=== PATIENT | female | born 1955 | race Caucasian/White ===

== ENCOUNTER 2023-09-11 09:01 | Outpatient (AMB) | payer MEDICARE, SELFPAY ==
--- NOTE | 2023-09-11 09:02 | A.OFFVIS_ITS ---
Intake Vital Signs 3 09/11/23 09:05 Height 5 ft 7 in Weight 214 lb BMI 33.5 BP 126/68 Blood Pressure Location Lt brachial Position Sitting Pulse 68 Pulse Source Pulse Oximeter Pulse Oximetry (%) 98 Oxygen Delivery Method Room Air Intake Visit Reasons: pulmonary nodules Rehab Technician Required: No Media Assistant: Media Assistant offered & declined Accompanied by: Self / Same As Patient Allergies bees Allergy (Severe, Uncoded 09/11/23 09:13) Anaphylaxis Medication List - Last Reconciled 09/11/23 by Renetta Navarro LPN apixaban 5 mg PO BID cholecalciferol (vitamin D3) 125 mcg PO DAILY diltiazem HCl 120 mg PO DAILY estradiol (Estrace) 1 mg PO DAILY progesterone micronized 200 mg PO BEDTIME HPI pulmonary nodules 2 HPI0 Details Earlene is a pleasant 67 year female, never smoker, with underlying atrial fibrillation recently on diltiazem and Eliquis, hemochromatosis, grave's disease and basal cell carcinoma. She was referred by PCP for pulmonary evaluation. She was seen at [facility] on 08/12 for sudden onset chest pain and shortness of breath found to be in rapid atrial fibrillation. Ddimer was positive and CTA performed which was negative for PE, however multiple nodules were incidentally found and well as nodular pleural thickening. Report below. Patient denies prior CT. She denies any respiratory symptoms at this time. She reports being quite active with minimal respiratory symptoms. She denies any prior history of asthma. She denies any pertinent family history. She reports multiple occupational exposures with silicone, dust and dirt. [facility] Social History (Updated 09/11/23 @ 09:14 by Renetta Navarro LPN) Patient Tobacco Use Status: Never used Tobacco Smoked in Last 30 Days: No Review of Systems Const Denies chills, Denies excessive sweating, Denies fever(s), Denies headache(s) and Denies night sweats Eyes Denies dry eyes, Denies irritation and Denies itchy eyes ENT Reports Normal hearing present, Denies headache(s), Denies nasal congestion, Denies nasal discharge, Denies post nasal drip and Denies sore throat Card Denies chest pain, Denies chest pain at rest, Denies chest pain with activity, Denies claudication, Denies leg edema, Denies dyspnea, Denies dyspnea on exertion, Denies orthopnea and Denies paroxysmal nocturnal dyspnea Resp Denies chest congestion, Denies cough, Denies excessive phlegm production, Denies pain on inspiration, Denies pain with cough, Denies dyspnea, Denies dyspnea on exertion, Denies stridor and Denies wheezing Musc Denies myalgias Neuro Reports Normal hearing present and Denies headache(s) Endo Denies excessive sweating Damion/Lymph Denies lymphadenopathy Aller/Immun Denies itchy eyes, Denies seasonal rhinorrhea and Denies wheezing Physical Exam Vital Signs: Last Vital Signs Pulse 68 09/11/23 09:05 BP 126/68 09/11/23 09:05 Pulse Ox 98 09/11/23 09:05 Oxygen Delivery Method Room Air 09/11/23 09:05 BMI result Body Mass Index 33.5 Const General: cooperative, healthy appearing, comfortable, no acute distress, well developed and alert Orientation/consciousness: patient oriented x3 Limitations: no limitations HEENT Head: Yes normal to inspection, Yes normocephalic and Yes atraumatic Ears: hearing grossly normal bilaterally and external ears normal Eyes General: appearance normal, both eyes and all related structures Eyelids: Yes eyelids normal Sclerae: sclerae normal EOM: EOMs intact bilaterally Neck Neck: Yes normal visual inspection and Yes no lymphadenopathy Lymphatic: no lymphadenopathy noted Chest Chest palpation & inspection: normal inspection of the chest Resp Effort & Inspection: normal respiratory effort, able to speak in complete sentences, no audible wheezes, no cough, no stridor, not tachypneic, no tripod positioning and no use of accessory muscles Auscultation: clear to auscultation bilaterally Cardio Jugular venous distension: no JVD Rate: regular rate Rhythm: regular rhythm Skin Other: warm, dry General skin exam: no rashes or lesions noted Neuro General: patient oriented x3 Cranial nerves: Yes Normal hearing present Cognition (Neuro): normal cognition Gait exam (Neuro): Normal gait present Extrem General: Yes normal to inspection, Yes capillary refill normal, Yes no clubbing, cyanosis or edema and Yes no pedal edema Psych Appearance: grossly normal and well kempt Speech and movement: Normal speech and movement present and Clear speech present Affect: normal affect Attitude: cooperative Thought process: Normal thought process present Thought content: Normal thought content present Insight: Good insight present (Psych) Judgement: Good judgement present (Psych) Results Reviewed Results Reviewed: Assessment & Plan Assessment & Plan (1) Multiple pulmonary nodules: Code(s): R91.8 - Other nonspecific abnormal finding of lung field (2) Pleural thickening: Code(s): J92.9 - Pleural plaque without asbestos Plan Earlene presents for evaluation of incidental pulmonary nodules and MALICK nodular thickening measuring up to 2.5 cm. Recommend patient were made for for recommendations were made for PET versus biopsy. Will obtain images, as only report is available today. Once reviewed, will discuss plan for further work up with patient. All questions were answered and patient is in agreement of plan. Will follow-up once imaging is reviewed. Coding Level of Care Code New Pt Level 3 (93372) Diagnoses Multiple pulmonary nodules R91.8 Pleural thickening J92.9
[2023-09-11 09:05] VITALS: BP 126/68; PULSE 68; O2SAT 98; BMI 33.5
== END 2023-09-11 09:52 | disposition home or self-care (01) ==
PROVIDERS: PCP Internal Medicine; Referring Provider Internal Medicine; Visit Provider Nurse Practitioner Family
DX: R91.8 Other nonspecific abnormal finding of lung field (principal); J92.9 Pleural plaque without asbestos
CPT/HCPCS: 99203

== ENCOUNTER → 2023-09-11 09:01 | Outpatient (BNVA) | payer MEDICARE, SELFPAY | PROVIDERS: PCP Internal Medicine; Referring Provider Internal Medicine; Visit Provider Nurse Practitioner Family | DX: R91.8 Other nonspecific abnormal finding of lung field (principal); J92.9 Pleural plaque without asbestos | CPT/HCPCS: 99202 ==

== ENCOUNTER 2023-09-25 10:41 | Outpatient (REF) | payer MEDICARE, SELFPAY | END 2023-09-25 10:42 | disposition home or self-care (01) | LOC: CF 10:41 | DX: Z13.89 Encounter for screening for other disorder (principal) ==

== ENCOUNTER 2023-09-30 14:43 | Outpatient (REF) | payer MEDICARE, SELFPAY ==
[2023-09-30 08:55] VITALS: PULSE 78; RESP 16; O2SAT 98
--- NOTE | 2023-09-30 16:08 | PFT_ITS ---
Indication: Pulmonary nodule Spirometry [FEV1 to FVC 81%; FEV1 2.37 L; FVC 2.91 L. no significant response to bronchodilators noted. Maximum voluntary ablation 120% predicted] Lung Volumes [Total lung capacity 87% predicted] Diffusion Capacity [Diffusing capacity 115% predicted] Comparisons [None] Interpretation [No obstructive nor restrictive ventilatory defects identified. No significant response to bronchodilators noted. Normal lung volumes normal diffusing capacity. This is consistent with normal lung mechanics.] MTDD
== END 2023-09-30 14:44 | disposition home or self-care (01) ==
LOC: HO.RESP 14:43
PROVIDERS: PCP Internal Medicine; Visit Provider Nurse Practitioner Family
DX: R06.00 Dyspnea, unspecified (principal)
CPT/HCPCS: 94010; 94640; 94727; 94729

== ENCOUNTER → 2023-09-30 16:08 | Outpatient (BNV) | payer MEDICARE, SELFPAY | PROVIDERS: PCP Internal Medicine; Visit Provider Hospitalist | DX: R06.00 Dyspnea, unspecified (principal) | CPT/HCPCS: 94060; 94727; 94729 ==